=== PATIENT | male | born 1935 | race Caucasian/White ===

== ENCOUNTER 2020-01-16 05:24 | Day surgery (SDC) | payer MEDICARE ==
[2020-01-16] MEDS ORDERED: LACTATED RINGERS 1,000 ML ONE (06:31)
[2020-01-16] MEDS ORDERED: LIDOCAINE 1% 10 ML VIAL INJ ONE (07:00)
[2020-01-16] MEDS ORDERED: PROPOFOL 200 MG/20 ML VIAL IV ONE (07:00)
[2020-01-16] MEDS ORDERED: LACTATED RINGERS 1,000 ML IVS ONE (08:15)
[2020-01-16] MEDS ORDERED: fentaNYL CITRATE INJ 50 MCG/ML 2 ML AMP ONE (09:04)
--- NOTE | 2020-01-16 11:31 | OP ---
DATE OF PROCEDURE: 01/16/20 PREOPERATIVE DIAGNOSIS: 1. Anemia, iron deficiency. POSTOPERATIVE DIAGNOSIS: 1. Normal EGD. 2. Normal colon. PROCEDURE: 1. EGD. 2. Colonoscopy. SURGEON: Vik Childs MD ANESTHESIA: General FINDINGS: Normal and normal. INDICATION: This is a healthy-appearing 84-year-old male with a history of esophageal cancer treated with radiation. He has now presented with some iron deficiency anemia. He does not have a history of bloody stool or hematemesis. Given his history, we are going to scope up and down. PROCEDURE: The patient was brought to the Endoscopy Suite and made comfortable with a bite block. General anesthesia intravenously was given. The scope was inserted. He did have some pale posterior pharynx. His cords were seen. They appeared flattened, likely from radiation changes and pale. We got into the esophagus without difficulty and into the deep second portion of the duodenum. The mucosal surfaces appeared normal. There was no evidence of ulcer or bleeding. The pylorus appeared normal. No obvious gastritis. Retroflexion showed normal proximal stomach with no evidence of hiatal hernia. Upon withdrawal, the GE junction appeared normal, as did the remainder of the esophagus. There was some bile in the esophagus, however, it was likely just from our intubation. I did not notice it on the way in. He tolerated the EGD well. Some photos were taken. He was then re-positioned for the colonoscopy. He had a long colon. We had moderate difficulty getting to the cecum, but ultimately, we did and identified a normal cecum and ileocecal valve. The appendiceal orifice could not readily be identified, but we were in the cecum assuredly by landmarks and light reflex, etc. Upon withdrawal, there were normal appearing mucosal surfaces. We did not identify any polyps. There were some flaps. We took care to examine behind the flaps and folds where we encountered them. We did not identify any arteriovenous malformations or polyps or source of bleeding. There was one red spot, not necessarily AVM, but a red 2 mm area. There was no stigmata of recent bleed. It was in the rectum. If he had bled from that, I think he would have noticed blood in his stool. On retroflexion, some non-thrombosed, non-bleeding internal hemorrhoids were seen. Otherwise negative colonoscopy. Negative EGD. He was taken to Recovery in stable condition to be discharged. #[id number] cc: Deysi Marcelo MD [facility]
[2020-01-16 11:35] VITALS: BP 150/86; TEMP 97; O2SAT 97
== END 2020-01-16 11:20 | disposition home or self-care (01) ==
LOC: AMB 05:24
PROVIDERS: ATTEND Surgery
DX: D50.9 Iron deficiency anemia, unspecified (principal); K64.8 Other hemorrhoids; Z85.01 Personal history of malignant neoplasm of esophagus; Z92.3 Personal history of irradiation
CPT/HCPCS: 00813; 36416; 43235; 45378; 82948; J3010; J3490; J7120